=== PATIENT | male | born 1985 | race Caucasian/White ===

== ENCOUNTER 2017-05-18 10:18 | Emergency (ER) | payer BC ==
[2017-05-18 10:34] VITALS: BP 141/81
--- NOTE | 2017-05-18 10:42 | UC ---
Abdominal Pain Male HPI - HPI Summary HPI Summary: Patient noticed small amount of blood this morning during bowel movement bright red blood streaked in stool. Also complains of rectal pain. Stool was normally formed not constipated. No abdominal pain - History of Current Complaint Hx Obtained From: Patient Onset/Duration: Sudden Onset Timing: Constant Severity Initially: Mild Severity Currently: Mild Pain Intensity: 2 Pain Scale Used: 0-10 Numeric Location: Other - rectal exam Radiates: No Aggravating Factor(s): Other - Bowel movement Alleviating Factor(s): Nothing Associated Signs And Symptoms: Positive: Blood in Stool - Streaked in stool. Negative: Constipation <Danya Seaman - Last Filed: 05/18/17 11:28> <Charlotte Shetty - Last Filed: 05/18/17 11:56> - History of Current Complaint Chief Complaint: UCGU Stated Complaint: RECTAL BLEEDING Time Seen by Provider: 05/18/17 10:34 - Allergies/Home Medications Allergies/Adverse Reactions: Allergies Allergy/AdvReac Type Severity Reaction Status Date / Time No Known Allergies Allergy Verified 05/18/17 10:29 Home Medications: Home Medications Naproxen Sodium [Aleve] 2 tab PO DAILY 05/18/17 [History Confirmed 05/18/17] PMH/Surg Hx/FS Hx/Imm Hx Previously Healthy: Yes - Surgical History Surgical History: None - Family History Known Family History: Positive: Other - Mother has history of colitis and Crohn' s - Social History Occupation: Employed Full-time Lives: With Family Alcohol Use: Occasionally Substance Use Type: None Smoking Status (MU): Never Smoked Tobacco <Danya Seaman - Last Filed: 05/18/17 11:28> Review of Systems Constitutional: Negative Skin: Negative Eyes: Negative ENT: Negative Respiratory: Negative Cardiovascular: Negative Gastrointestinal: Negative Genitourinary: Negative Motor: Negative Neurovascular: Negative Musculoskeletal: Negative Neurological: Negative Psychological: Negative Is Patient Immunocompromised?: No All Other Systems Reviewed And Are Negative: Yes <Danya Seaman - Last Filed: 05/18/17 11:28> Physical Exam Triage Information Reviewed: Yes Appearance: Well-Appearing, No Pain Distress, Well-Nourished Vital Signs: Initial Vital Signs Temp 98.4 F 05/18/17 10:30 Pulse 77 05/18/17 10:30 Resp 16 05/18/17 10:30 BP 141/81 05/18/17 10:30 Pulse Ox 99 05/18/17 10:30 Vital Signs Reviewed: Yes Eye Exam: Normal Eyes: Positive: Conjunctiva Clear ENT Exam: Normal ENT: Positive: Normal ENT inspection, Hearing grossly normal. Negative: Trismus , Muffled voice, Hoarse voice Dental Exam: Normal Neck exam: Normal Neck: Positive: Supple, Nontender Respiratory Exam: Normal Respiratory: Positive: No respiratory distress, No accessory muscle use Cardiovascular Exam: Normal Cardiovascular: Positive: RRR, Pulses Normal, Brisk Capillary Refill Abdominal Exam: Normal Abdomen Description: Positive: Nontender, No Organomegaly, Soft. Negative: CVA Tenderness (R), CVA Tenderness (L), Distended, Guarding, Hernia @, Peritoneal Signs, Pulsatile Mass Bowel Sounds: Positive: Present Musculoskeletal Exam: Normal Musculoskeletal: Positive: Strength Intact, ROM Intact, No Edema Neurological Exam: Normal Neurological: Positive: Alert, Muscle Tone Normal Psychological Exam: Normal Skin: Positive: Other - 5 mm anal fissure 6 o'clock position <Danya Seaman - Last Filed: 05/18/17 11:28> Vital Signs: Initial Vital Signs Temp 98.4 F 05/18/17 10:30 Pulse 77 05/18/17 10:30 Resp 16 05/18/17 10:30 BP 141/81 05/18/17 10:30 Pulse Ox 99 05/18/17 10:30 <Charlotte Shetty - Last Filed: 05/18/17 11:56> Diagnostics - Laboratory Diagnostic Studies Completed/Ordered: Rectal exam performed stool is guaiac negative no tenderness no masses noted <Danya Seaman - Last Filed: 05/18/17 11:28> Abd Pain Male Course/Dx - Course Course Of Treatment: Keep stool soft with Metamucil and increase fluids. May use hydrocortisone preparation with lidocaine for discomfort. Follow with surgery as referred should not resolve. Follow blood pressure with primary care doctor - Differential Dx/Clinical Impression Provider Diagnoses: Elevated blood pressure without diagnosis of hypertension, anal fissure <Danya Seaman - Last Filed: 05/18/17 11:28> Discharge - Sign-Out/Discharge Documenting (check all that apply): Discharge - Billing Disposition and Condition Condition: STABLE Disposition: HOME <Danya Seaman - Last Filed: 05/18/17 11:28> - Billing Disposition and Condition Condition: STABLE Disposition: HOME <Charlotte Shetty - Last Filed: 05/18/17 11:56> - Discharge Plan Condition: Stable Disposition: HOME Patient Education Materials: Laxative, Bulk-forming (By mouth), Hydrocortisone/ Lidocaine (Into the rectum), Anal Fissure (ED), Hypertension (ED) Referrals: [facility] [place] [facility] [Outside] - 2 Weeks Candace Best MD [Medical Doctor] - 1 Week Attestation Statement User Type: Provider - I was available for consult. This patient was seen by the advanced practice provider. The patient was not presented to, seen by, or examined by me.-Shi <Charlotte Shetty - Last Filed: 05/18/17 11:56>
== END 2017-05-18 11:00 | disposition home or self-care (01) ==
LOC: UCEAST 10:18
DX: K60.2 Anal fissure, unspecified (principal); R03.0 Elevated blood-pressure reading, without diagnosis of hypertension
CPT/HCPCS: 82272; 99211; G0463

== ENCOUNTER 2018-03-13 12:43 | Emergency (ER) | payer BC ==
[2018-03-13 12:53] VITALS: BP 145/79
--- NOTE | 2018-03-13 12:54 | UC ---
Respiratory Complaint HPI - HPI Summary HPI Summary: 32 yo male presents with sinus congestion, post nasal drip, and productive cough for the last month. Over the last 2-3 days his cough has been more productive with yellow/brown sputum. He has felt warm at times, but not taken his temperature. Over the last month has been taking mucinex, dayquill, and various cold/flu medications with no relief. He does not smoke. Denies sore throat, SOB, chest pain, abdominal pain, n/v - History of Current Complaint Chief Complaint: UCRespiratory Stated Complaint: COUGH CONGESTION Time Seen by Provider: 03/13/18 12:53 Hx Obtained From: Patient Onset/Duration: Gradual Onset Severity Initially: Moderate Severity Currently: Severe Pain Intensity: 7 Pain Scale Used: 0-10 Numeric Character: Cough: Productive - Allergies/Home Medications Allergies/Adverse Reactions: Allergies Allergy/AdvReac Type Severity Reaction Status Date / Time No Known Allergies Allergy Verified 03/13/18 12:53 Home Medications: Home Medications Guaifenesin/Dextromethorphan [Mucinex Fast-Max Dm Max 20-400 mg/20Ml] 1 liq PO DAILY PRN 03/13/18 [History Confirmed 03/13/18] PMH/Surg Hx/FS Hx/Imm Hx - Additional Past Medical History Additional PMH: None - Surgical History Surgical History: None - Family History Known Family History: Positive: Other - Mother has history of colitis and Crohn' s - Social History Occupation: Employed Full-time Lives: With Family Alcohol Use: Occasionally Substance Use Type: None Smoking Status (MU): Never Smoked Tobacco Review of Systems All Other Systems Reviewed And Are Negative: Yes Constitutional: Positive: Negative Skin: Positive: Negative Eyes: Positive: Negative ENT: Positive: Sinus Congestion Respiratory: Positive: Cough Cardiovascular: Positive: Negative Gastrointestinal: Positive: Negative Neurovascular: Positive: Negative Neurological: Positive: Negative Psychological: Positive: Negative Physical Exam - Summary Physical Exam Summary: GENERAL: NAD. WDWN. No pain distress. SKIN: No rashes, sores, lesions, or open wounds. HEENT: Head: AT/NC Eyes: EOM intact. Conjunctiva clear without inflammation or discharge. Ears: Hearing grossly normal. TMs intact, no bulging, erythema, or edema. Nose: Nasal mucosa pink and moist. NTTP maxillary and frontal sinus. Throat: Posterior oropharynx without exudates, erythema, or tonsillar enlargement. Uvula midline. NECK: Supple. Nontender. No lymphadenopathy. CHEST: CTAB. No r/r/w. No accessory muscle use. Breathing comfortably and in no distress. CV: RRR. Without m/r/g. Pulses intact. Cap refill <2seconds NEURO: Alert. PSYCH: Age appropriate behavior. Triage Information Reviewed: Yes Vital Signs: Initial Vital Signs Temp 99.6 F 03/13/18 12:47 Pulse 97 03/13/18 12:47 Resp 14 03/13/18 12:47 BP 145/79 03/13/18 12:47 Pulse Ox 98 03/13/18 12:47 Vital Signs Reviewed: Yes Diagnostic Evaluation - Laboratory O2 Sat by Pulse Oximetry: 98 Respiratory Course/Dx - Course Course Of Treatment: Given pt's length of symptms and failure of OTC medications - will treat with anbx. - Differential Dx/Diagnosis Provider Diagnosis: URI (upper respiratory infection) Discharge - Sign-Out/Discharge Documenting (check all that apply): Patient Departure All imaging exams completed and their final reports reviewed: No Studies - Discharge Plan Condition: Stable Disposition: HOME Prescriptions: Amoxicillin/Clavulanate TAB* [Augmentin TAB 875*] 875 mg PO BID #20 tab Benzonatate CAP* [Tessalon 100 MG CAP*] 100 mg PO TID PRN #21 cap PRN Reason: Cough Patient Education Materials: Upper Respiratory Infection (DC) Referrals: No Primary Care Phys,NOPCP [Primary Care Provider] - Additional Instructions: If you develop a fever, shortness of breath, chest pain, new or worsening symptoms - please call your PCP or go to the ED. Your blood pressure was high at todays visit. Please see your primary provider within 4 weeks for recheck and re-evaluation. - Billing Disposition and Condition Condition: STABLE Disposition: Home - Attestation Statements Provider Attestation: I was available for consult. This patient was seen by the ANNA MARIE. The patient was not presented to, seen by, or examined by me. -Shi
== END 2018-03-13 13:20 | disposition home or self-care (01) ==
LOC: UCEAST 12:43
DX: J06.9 Acute upper respiratory infection, unspecified (principal)
CPT/HCPCS: 99212; G0463

== ENCOUNTER 2018-06-12 13:57 | Emergency (ER) | payer BC ==
[2018-06-12 14:04] VITALS: BP 114/77
--- NOTE | 2018-06-12 14:09 | UC ---
Neck Pain HPI - HPI Summary HPI Summary: 32 yo male presents with neck pain. He tells me that about 3 weeks ago he woke up and noticed he had left neck pain that felt stiff and was worse with movement - thought he slept on it wrong. He tried to give it time and take aleve , but symptoms have continued and now is having some left posterior shoulder pain. Pain is worse with shoulder flexion and with neck extension. Denies headache, dizziness, injury, numbness, tingling, or loss of sensation. - History of Current Complaint Chief Complaint: UCBackPain Stated Complaint: NECK PAIN Time Seen by Provider: 06/12/18 14:05 Hx Obtained From: Patient Onset/Duration: Sudden Onset Severity: Moderate Pain Intensity: 8 Pain Scale Used: 0-10 Numeric - Allergies/Home Medications Allergies/Adverse Reactions: Allergies Allergy/AdvReac Type Severity Reaction Status Date / Time No Known Allergies Allergy Verified 06/12/18 14:04 PMH/Surg Hx/FS Hx/Imm Hx - Additional Past Medical History Additional PMH: None - Surgical History Surgical History: None - Family History Known Family History: Positive: Other - Mother has history of colitis and Crohn' s - Social History Occupation: Employed Full-time Lives: With Family Alcohol Use: Occasionally Substance Use Type: None Smoking Status (MU): Never Smoked Tobacco Review of Systems All Other Systems Reviewed And Are Negative: Yes Constitutional: Positive: Negative Skin: Positive: Negative Respiratory: Positive: Negative Cardiovascular: Positive: Negative Neurovascular: Positive: Negative Musculoskeletal: Positive: Other: - Neck pain Neurological: Positive: Negative Psychological: Positive: Negative Physical Exam - Summary Physical Exam Summary: GENERAL: NAD. WDWN. No pain distress. SKIN: No rashes, sores, lesions, or open wounds. CHEST: No accessory muscle use. Breathing comfortably and in no distress. CV: Pulses intact radial and ulnar. Cap refill <2seconds MSK: LEFT upper trapezius with TTP and muscle spasm. Cervical spine NTTP. Pain reproduced with cervical extension, left shoulder flexion and adduction. 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 NEURO: Alert. Sensations intact C4-T1 b/l. PSYCH: Age appropriate behavior. Triage Information Reviewed: Yes Vital Signs: Initial Vital Signs Temp 98.4 F 06/12/18 14:00 Pulse 79 06/12/18 14:00 Resp 18 06/12/18 14:00 BP 114/77 06/12/18 14:00 Pulse Ox 97 06/12/18 14:00 Vital Signs Reviewed: Yes Neck Pain Course/Dx - Course Course Of Treatment: Suspect muscle strain/spasm. Discussed with pt and will hold on XR at this time as I have a low suspicion for a cervical spine pathology as he had no injury and has no numbness/tingling/shocks. Advised to apply heat and continue aleve. Will rx for flexeril and refer him to physical therapy for further treatment of his pain. - Differential Dx/Diagnosis Provider Diagnosis: Neck muscle spasm Discharge - Sign-Out/Discharge Documenting (check all that apply): Patient Departure All imaging exams completed and their final reports reviewed: No Studies - Discharge Plan Condition: Stable Disposition: HOME Prescriptions: Cyclobenzaprine TAB* [Flexeril 10 MG TAB*] 10 mg PO BID PRN #14 tab PRN Reason: Pain Patient Education Materials: Muscle Spasm (ED) Forms: *Work Release Referrals: No Primary Care Phys,NOPCP [Primary Care Provider] - Additional Instructions: If you develop a fever, shortness of breath, chest pain, new or worsening symptoms - please call your PCP or go to the ED. 1) Continue taking your aleve 2) Please call Physical Therapy to schedule an appointment for further treatment of your neck/shoulder pain - Billing Disposition and Condition Condition: STABLE Disposition: Home - Attestation Statements Provider Attestation: Per institutional requirements, I have reviewed the chart, however, I was not consulted specifically or made aware of this patient by the midlevel provider. I did not personally evaluate, interact with , or disposition this patient.
== END 2018-06-12 14:27 | disposition home or self-care (01) ==
LOC: UCEAST 13:57
DX: M62.838 Other muscle spasm (principal); M54.2 Cervicalgia
CPT/HCPCS: 99212; G0463

== ENCOUNTER → 2018-06-15 10:50 | Emergency (ER) | payer BC ==
--- NOTE | 2018-06-15 12:06 | ED ---
Neck Pain - HPI Summary HPI Summary: Patient is a 32-year-old male who presents emergency department for neck pain and pain and tingling down left arm. Patient denies any injury. States symptoms been going on for about a week. [facility] and prescribed Flexeril and naproxen which he states are not helping. Patient denies weakness and left arm and notes it is just painful. Patient denies past medical history. Denies fever, chills, recent illness. 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 Symptoms are mild in severity. Movement makes symptoms worse. Nothing makes symptoms better. - History of Current Complaint Chief Complaint: EDNeckComplaint Stated Complaint: LEFT ARM/NECK PAIN PER PT Time Seen by Provider: 06/15/18 11:21 Pain Intensity: 10 - Allergies/Home Medications Allergies/Adverse Reactions: Allergies Allergy/AdvReac Type Severity Reaction Status Date / Time No Known Allergies Allergy Verified 06/12/18 14:04 PMH/Surg Hx/FS Hx/Imm Hx Previously Healthy: Yes Infectious Disease History: No Infectious Disease History: Denies: Traveled Outside the [place] in Last 30 Days - Family History Known Family History: Positive: Other - Mother has history of colitis and Crohn' s, Non-Contributory - Social History Occupation: Employed Full-time Lives: With Family Alcohol Use: Occasionally Substance Use Type: Reports: None Smoking Status (MU): Never Smoked Tobacco Review of Systems Constitutional: Negative Negative: Fever, Chills Positive: Other - pain and tingling into left arm. Low neck pain Skin: Negative Positive: Paresthesia. Negative: Headache, Weakness, Numbness All Other Systems Reviewed And Are Negative: Yes Physical Exam Triage Information Reviewed: Yes Vital Signs On Initial Exam: Initial Vitals Temp Pulse Resp BP Pulse Ox 98.5 F 93 16 121/90 99 06/15/18 11:06 06/15/18 11:06 06/15/18 11:06 06/15/18 11:06 06/15/18 11:06 Vital Signs Reviewed: Yes Appearance: Positive: Well-Appearing - Pt. sitting on bed in NAD. Skin: Positive: Warm, Dry Head/Face: Positive: Normal Head/Face Inspection Eyes: Positive: Normal, EOMI, YE Neck: Positive: Supple, Other: - Tenderness to low cervical spine and to trapizeus muscle. Full ROM with rotation. Limited flexion and extension secondary to pain Musculoskeletal: Positive: Normal, Strength/ROM Intact, Other - 5/5 strength in UEs. Good radial pulses. Full ROM of shoulders. Neurological: Positive: Normal, CN Intact II-III Psychiatric: Positive: Affect/Mood Appropriate Diagnostics - Vital Signs Vital Signs Temp Pulse Resp BP Pulse Ox 06/15/18 11:06 98.5 F 93 16 121/90 99 - Laboratory Lab Statement: Any lab studies that have been ordered have been reviewed, and results considered in the medical decision making process. Neck Course/Dx - Course Course Of Treatment: Patient presenting with neck pain and intermittent paresthesias to left arm. No neurosensory deficits on exam. No weakness. Afebrile. Exam consistent with cervical radiculopathy. We'll try a course of prednisone. Advised to warm compresses and gentle massage. Advised follow-up with Clinic and get set up with family doctor for referral to physical therapy. We'll return to the ER symptoms change or worsen. Patient understands and agrees with plan. - Diagnoses Differential Dx/HQI/PQRI: Positive: Arthritis, Sprain, Strain Provider Diagnoses: Cervical radiculopathy Discharge - Sign-Out/Discharge Documenting (check all that apply): Patient Departure Patient Received Moderate/Deep Sedation with Procedure: No - Discharge Plan Condition: Good Disposition: HOME Prescriptions: methylPREDNISolone [Medrol Dosepak 4 MG*] 0 mg PO .SEE AUNG INSTRUCTION #1 tab Patient Education Materials: Cervical Radiculopathy (ED) Referrals: [facility] [Outside] [facility] [place] [facility] [Outside] Additional Instructions: Schedule a follow up appointment with the [facility] Take steroid pack as directed Apply warm compresses Gentle stretching and massage Return to ER if symptoms change or worsen - Billing Disposition and Condition Condition: GOOD Disposition: Home
[2018-06-15 12:14] VITALS: BP 106/88
== END | disposition home or self-care (01) ==
LOC: ED 10:50
DX: M54.12 Radiculopathy, cervical region (principal)
CPT/HCPCS: 99282